=== PATIENT | male | born 1980 | race Caucasian/White ===

== ENCOUNTER 2025-01-12 20:15 | Emergency (ER) | payer BC, SELFPAY ==
[2025-01-12 20:23] VITALS: BP 122/83
[2025-01-12 20:56] LABS: COVID-19 Antigen Negative (Negative)
--- NOTE | 2025-01-12 23:29 | ED.GENMED ---
History of Present Illness
General
Chief Complaint: Cold/Flu/URI Symptoms
Source: patient
Exam Limitations: none
Time Seen by Provider: 01/12/25 22:07
Nursing documentation reviewed up to this point in time: agreed with
History of Present Illness
History of Present Illness:
Patient to ED with complaint of fever, sorethroat, nasal congestion, weakness. Symptoms started 2 days ago. Brought self to ED for eval.
Past History
Past History
ED Past Medical History: None
ED Past Surgical History: None
Review of Systems
Review of Systems
Allergies reviewed?: Yes
All Other Systems: ROS reviewed and negative except as documented in HPI and ROS
Constitutional: Reports fever and fatigue
EENT: Reports sore throat and runny nose
Respiratory: Reports no symptoms
Cardiac: Reports no symptoms
ABD/GI: Reports no symptoms
: Reports no symptoms
Musculoskeletal: Reports no symptoms
Skin: Reports no symptoms
Neurological: Reports no symptoms
Psychiatric: Reports no symptoms
Phy Exam
General Physical Exam
General Presentation: well appearing and no apparent distress
General age: appears stated age
General Skin: warm and dry
General Habitus: normal
General Mental: alert
ENT Exam
ENT Exam: EOMI, TM's normal, pharynx normal, neck supple, normocephalic and swallowing well
Cardiovascular Exam
Cardiovascular Exam: regular rate/rhythm and no edema
Pulmonary Exam
Pulmonary Exam: lungs clear, no respiratory distress, chest non tender and no cough
Neurological Exam
Neurological Exam: alert, oriented x3, no motor deficits, no sensory deficits and speech normal
Musculoskeletal Exam
Musculoskeletal Exam: full ROM and neuro vasc intact
Skin Exam
Skin Exam: normal color, warm/dry and no rash
Psychiatric Exam
Psychiatric Exam: normal mood/affect
Course
Orders/Labs/Results
Orders:
Orders
01/12/25 20:28
Electrocardiogram (*1) Urgent
Reason for Study: Chest Pain
EKG- Treatment ONCE
01/12/25 20:31
COVID-19 Antigen Urgent
Source: Nasal Swab
Influenza A+B Rapid Molecular Urgent
DENG Source: Nasal Swab
Specimen Description:
Date Specimen was Collected: 01/12/25
Time Specimen was Collected: 20:28
Rapid Strep Group A Urgent
DENG Source: Throat/Pharynx
Specimen Description:
Date Specimen was Collected: 01/12/25
Time Specimen was Collected: 20:28
Vital Signs
Initial and Last Documented VS:
Initial Vital Signs
Temp Pulse Resp BP Pulse Ox
98.1 F 55 16 122/83 100
01/12/25 20:23 01/12/25 20:23 01/12/25 20:23 01/12/25 20:23 01/12/25 20:23
Last Documented Vital Signs
Temp Pulse Resp BP Pulse Ox
98.1 F 55 16 122/83 100
01/12/25 20:23 01/12/25 20:23 01/12/25 20:23 01/12/25 20:23 01/12/25 20:23
*Radiology
Radiology exam reviewed: radiology read reviewed
*Pulse Oximetry
Patient hypoxic: no
*Critical Care Note
Total Time (30-74mins, 75-104mins- exclusive of procedures): Not Applicable
Update Note
Update Note:
Patient to ED wtih complaint of fever, sorethroat, nasal congestion, weakness x days. Suspect viral illness other thant flu/covid as both were neg. Rapid strep neg also. He remains afebrile in ED, awake and alert, nontoxic appearing. Recommend
continuing rest, tylenol/ibuprofen, fluids, and close follow upw tih PCP. He was given instructions on s/s to return to ED and he is agreeable to plan.
ED Attending Note
-
Portions of this chart may have been created with voice recognition software.� Occasional wrong word or��sound alike� substitutions may have occurred due to the inherent limitations of voice recognition software.
Discharge Plan
Departure
Patient Disposition: Home (Routine Discharge)
Date of Disposition: 01/12/25
Time of Disposition: 22:22
Patient with high blood pressure during this ER visit?: No
Condition: Good
Covid-19: Not Applicable
Discharge Problem:
Pharyngitis
Instructions: Viral Syndrome (DC), Sore throat in adults - ED discharge instructions
Referrals:
UNKNOWN - PT DOES,NOT KNOW [Family Provider] -
Stand Alone Forms: Return to Work
Activity Restrictions/Additional Instructions:
Return to the emergency department immediately for any changes in/worsening of your symptoms
Interventions
Interventions:
*Risk Screen - Suicide Last Done: 01/12/25 20:23
*General Assessment Last Done: 01/12/25 20:23
*Neglect/Abuse Screening Last Done: 01/12/25 20:23
*Nursing Disposition Last Done: 01/12/25 22:37
ED- Pulmonary Assessment Last Done: 01/12/25 22:36
Discharge Date and Time
Discharge Date/Time: 01/12/25 22:37
Print Language: OCCITAN
== END 2025-01-12 22:37 | disposition home or self-care (01) ==
LOC: EMR 20:15
PROVIDERS: EMERGENCY PHYSICIAN Emergency Medicine
DX: J02.9 Acute pharyngitis, unspecified (principal); Z11.52 Encounter for screening for COVID-19
CPT/HCPCS: 99284; 87070; 87502; 87811; 87880; 93005